=== PATIENT | female | born 1955 | race Caucasian/White ===

== ENCOUNTER 2022-10-17 12:53 | Observation (INO) ==
[2022-10-17] MEDS ORDERED: SODIUM CHLORIDE 0.9% 1,000 ML IV STA (14:18)
[2022-10-17 14:25] LABS: Basophils % 0.2 % (0.0-0.8); Hematocrit 37.5 VOL% (35.7-47.0); Hemoglobin 13.3 GM/DL (12.0-16.0); Immature Granulocytes % 0.8 %; Immature Granulocytes Absolute 0.05 #; Lymphocytes # 0.1 10*3/uL (1.4-4.0); Lymphocytes % 1.8 % (21.3-54.2); Mean Corpuscular HGB Conc 35.5 GM/DL (32-36); Mean Corpuscular Volume 84.8 FL (87-102); Monocytes # 0.4 10*3/uL (0.11-0.8); Monocytes % 7.1 % (1.7-12.7); Neutrophils % 90.1 % (38.7-73.9); Platelet Count 151 T/CUMM (130-400); Red Blood Count 4.42 MC/CUMM (3.8-5.5); Red Cell Distribution Width 12.3 % (9.3-17.3)
[2022-10-17 14:34] LABS: PT Patient Result 10.7 SECS (10.1-12.1); Partial Thromboplastin Time 24.1 SECS (23.7-32.9)
[2022-10-17] MEDS ORDERED: levETIRAcetam 500 MG/5 ML VIAL IV ONE (14:39)
[2022-10-17 14:40] LABS: Albumin 3.5 G/DL (3.4-5.0); Bilirubin,Total 0.6 MG/DL (0.20-1.00); Calcium 9.1 MG/DL (8.5-10.1); Osmolality,Calculated 249.6 MOS/KG (273-304); Potassium 3.2 MMOL/L (3.5-5.1); Total Protein 7.2 G/DL (6.4-8.2)
[2022-10-17 14:55] LABS: Urine Appearance Clear (Clear); Urine Color Yellow (Yellow)
[2022-10-17 14:55] LABS: Anisocytosis Slight; Lymphocytes 4 % (20-55); Platelet Estimate Adequate; Total Cells Counted 100
[2022-10-17 14:56] LABS: Bilirubin,Urine Negative (Negative); Blood, Urine Negative (Negative); Glucose,Urine (UA) Negative (Negative); Ketones,Urine Negative (Negative); Nitrite,Urine Negative (Negative); Protein,Urine Negative (Negative); Urine Urobilinogen 0.2 eU/dL (<2.0); Urine pH 7.5 (4.5-8.0)
[2022-10-17 14:57] LABS: Microcytosis Slight
[2022-10-17 15:00] LABS: Hyaline Casts,Urine 5 /LPF (0-3); Mucus,Urine Occasional /LPF (Occasional); RBC,Urine 2 /HPF (0-4); Squamous Epithelial Cell,Urine Occasional /HPF (0-10)
[2022-10-17 15:23] LABS: Barbiturates Screen,Urine Negative (Negative); Benzodiazepines Screen,Urine Negative (Negative); Cannabinoid Screen,Urine Negative (Negative); Opiate Screen,Urine Negative (Negative); Phencyclidine Screen,Urine Negative (Negative)
[2022-10-17] MEDS: POTASSIUM CHLORIDE RIDER 10 MEQ/100 ML PREMIX IV PRN ×3 (16:26→21:12)
[2022-10-17] MEDS ORDERED: ONDANSETRON 4 MG/2 ML VIAL IV PRN (16:36)
[2022-10-17] MEDS: SODIUM CHLORIDE 0.9% 1,000 ML IV SCH (17:17)
[2022-10-17 17:42] LABS: Folate 9.57 NG/ML (5.38-24.0); Hepatitis B Core IgM Quant < 0.05 Index; Hepatitis B Surface Ag Quant < 0.10 Index; Hepatitis B Surface Ag Result Non-Reactive (NonReactive); Hepatitis C Virus Ab Quant 0.03 Index; Hepatitis C Virus Ab Result Non-Reactive (NonReactive); Vitamin B12 661 PG/ML (211-911)
[2022-10-17] MEDS ORDERED: levETIRAcetam 500 MG TABLET PO SCH (21:00)
[2022-10-17] MEDS: DOCUSATE SODIUM 100 MG CAPSULE PO SCH (21:10)
[2022-10-17] MEDS: levETIRAcetam 500 MG TABLET PO SCH (21:12)
[2022-10-17] MEDS: ACETAMINOPHEN 325 MG TABLET PO PRN (23:32)
[2022-10-17] MEDS: ONDANSETRON 4 MG/2 ML VIAL IV PRN (23:34)
[2022-10-18] MEDS: SODIUM CHLOR 0.9% KCL 20 MEQ 20 MEQ/1,000 ML BAG IV SCH ×4 (01:20→21:48)
[2022-10-18] MEDS: SODIUM CHLORIDE 0.9% 1,000 ML IV SCH (01:28)
[2022-10-18] MEDS: ACETAMINOPHEN 325 MG TABLET PO PRN ×2 (06:10→19:39)
[2022-10-18 07:02] LABS: Basophils % 0.6 % (0.0-0.8); Eosinophils # 0.1 10*3/uL (0.0-0.87); Eosinophils % 2.9 % (0.00-10.9); Hematocrit 36.3 VOL% (35.7-47.0); Hemoglobin 12.1 GM/DL (12.0-16.0); Immature Granulocytes % 0.4 %; Immature Granulocytes Absolute 0.02 #; Lymphocytes # 0.3 10*3/uL (1.4-4.0); Mean Corpuscular HGB Conc 33.3 GM/DL (32-36); Mean Corpuscular Volume 88.3 FL (87-102); Monocytes # 0.6 10*3/uL (0.11-0.8); Neutrophils % 78.1 % (38.7-73.9); Platelet Count 160 T/CUMM (130-400); Red Blood Count 4.11 MC/CUMM (3.8-5.5); Red Cell Distribution Width 12.5 % (9.3-17.3); White Blood Count 4.8 T/CUMM (4-12)
[2022-10-18 07:26] LABS: Albumin 3.1 G/DL (3.4-5.0); Bilirubin,Total 0.8 MG/DL (0.20-1.00); Calcium 8.5 MG/DL (8.5-10.1); Osmolality,Calculated 264.2 MOS/KG (273-304); Potassium 3.5 MMOL/L (3.5-5.1); Total Protein 6.5 G/DL (6.4-8.2)
[2022-10-18] MEDS: PANTOPRAZOLE 40 MG TABLET PO SCH (08:59)
[2022-10-18] MEDS: levETIRAcetam 500 MG TABLET PO SCH ×2 (08:59→21:38)
[2022-10-18] MEDS: DOCUSATE SODIUM 100 MG CAPSULE PO SCH ×2 (09:10→21:38)
[2022-10-18] MEDS: OLMESARTAN 20 MG TABLET PO SCH (11:14)
[2022-10-18] MEDS: ONDANSETRON 4 MG/2 ML VIAL IV PRN (19:38)
[2022-10-18] MEDS ORDERED: CETIRIZINE 10 MG TABLET PO SCH (21:00)
[2022-10-18] MEDS ORDERED: traZODone 50 MG TABLET PO SCH (21:00)
[2022-10-18] MEDS: HYDROXYCHLOROQUINE 200 MG TABLET PO SCH (21:39)
[2022-10-19 06:49] LABS: Eosinophils # 0.3 10*3/uL (0.0-0.87); Eosinophils % 6.8 % (0.00-10.9); Hemoglobin 13.3 GM/DL (12.0-16.0); Immature Granulocytes % 0.5 %; Immature Granulocytes Absolute 0.02 #; Lymphocytes # 0.4 10*3/uL (1.4-4.0); Lymphocytes % 9.6 % (21.3-54.2); Mean Corpuscular HGB Conc 32.4 GM/DL (32-36); Mean Corpuscular Volume 90.1 FL (87-102); Monocytes # 0.5 10*3/uL (0.11-0.8); Monocytes % 12.4 % (1.7-12.7); Neutrophils % 69.7 % (38.7-73.9); Platelet Count 144 T/CUMM (130-400); Red Blood Count 4.55 MC/CUMM (3.8-5.5); Red Cell Distribution Width 12.6 % (9.3-17.3)
[2022-10-19 07:09] LABS: Albumin 3.6 G/DL (3.4-5.0); Bilirubin,Total 0.7 MG/DL (0.20-1.00); Calcium 9.7 MG/DL (8.5-10.1); Osmolality,Calculated 270.8 MOS/KG (273-304); Potassium 3.8 MMOL/L (3.5-5.1); Total Protein 7.5 G/DL (6.4-8.2)
[2022-10-19 07:57] VITALS: BP 154/80
[2022-10-19] MEDS ORDERED: ESTRADIOL 1 MG TABLET PO SCH (09:00)
[2022-10-19] MEDS ORDERED: POTASSIUM CHLORIDE 10 MEQ TABLET PO SCH (09:00)
[2022-10-19] MEDS ORDERED: NON-FORMULARY MEDICATION (Omeprazole 40 mg capsule,delayed release(DR/EC)) PO SCH (09:00)
[2022-10-19] MEDS: OLMESARTAN 20 MG TABLET PO SCH (10:11)
[2022-10-19] MEDS: levETIRAcetam 500 MG TABLET PO SCH (10:11)
[2022-10-19] MEDS: PANTOPRAZOLE 40 MG TABLET PO SCH (10:12)
[2022-10-19] MEDS: DOCUSATE SODIUM 100 MG CAPSULE PO SCH (10:12)
[2022-10-19] MEDS: HYDROXYCHLOROQUINE 200 MG TABLET PO SCH (10:13)
== END 2022-10-19 10:46 | disposition home or self-care (01) ==
LOC: EDUNIT# → EDBD → N.EDINP 12:53 → N.ED 12:53 → N.3E 16:12
PROVIDERS: ADMIT Internal Medicine; ATTEND Internal Medicine